=== PATIENT | female | born 1990 | race African-American/Black ===

== ENCOUNTER 2017-02-21 18:45 | Emergency (ER) | payer MEDICAID ==
[~2017-02-21] VITALS: Ht 175.3 cm; Wt 89.4 kg
[2017-02-21 19:50] VITALS: BP 126/86
[2017-02-21] MEDS ORDERED: ACETAMINOPHEN/CODEINE#3 (300/30mg) TAB PO ONE (22:00)
== END 2017-02-21 22:31 | disposition home or self-care (01) ==
LOC: ER 18:45
DX: R51 Headache (principal)
CPT/HCPCS: 70450

== ENCOUNTER 2017-05-29 18:07 | Emergency (ER) | payer MEDICAID ==
[~2017-05-29] VITALS: Ht 175.3 cm; Wt 88.0 kg
[2017-05-29] MEDS ORDERED: ACETAMINOPHEN 325 MG TAB PO ONE (18:30)
[2017-05-29 18:58] LABS: Urine Bilirubin Negative (Negative); Urine Blood TRACE /uL (Negative); Urine Color Yellow (Yellow); Urine Glucose Normal (Normal); Urine Ketone Negative (Negative); Urine Mucus FEW (None Seen); Urine Nitrite Negative (Negative); Urine RBC 8 /hpf (0 - 4); Urine Squamous Epithelial Cell MOD /hpf (<5); Urine pH 6.5 (5.0-8.0)
[2017-05-29 19:34] LABS: Basophils # (auto) 0 uL; Basophils % (auto) 0.2 % (0.0-2.0); CONDITION Y; Eosinophils # (auto) 0 uL; Hematocrit 34.2 % (36.0-46.0); Hemoglobin 11.4 g/dL (12.2-16.2); Lymphocytes # (auto) 1.1 uL; Lymphocytes % (auto) 10.3 % (10.0-50.0); Mean Corpuscular Hemoglobin 31.4 pg (28.0-32.0); Mean Corpuscular Hgb Conc. 33.2 g/dL (32.0-36.0); Mean Corpuscular Volume 94.5 fL (80.0-100.0); Mean Platelet Volume 8.8 fL (7.4-10.4); Monocytes # (auto) 0.9 uL; Monocytes % (auto) 8.3 % (0.0-12.0); Neutrophils # (auto) 8.5 uL; Neutrophils % (auto) 81.2 % (37.0-80.0); Platelet Count (auto) 287 10^3/uL (140-450); Red Cell Distribution Width 13.8 % (11.6-16.0); White Blood Cell 10.5 10^3/uL (4.4-10.8)
[2017-05-30] MEDS ORDERED: KETOROLAC TROMETH 60MG/2ML VIAL IM ONE (07:00)
[2017-05-30] MEDS ORDERED: cefTRIAXone SOD 1,000 MG VL IM ONE (07:00)
[2017-05-30 07:39] VITALS: BP 108/60
== END 2017-05-30 10:11 | disposition home or self-care (01) ==
LOC: ER 18:28
DX: N39.0 Urinary tract infection, site not specified (principal); N12 Tubulo-interstitial nephritis, not specified as acute or chronic
CPT/HCPCS: 36415; 81001; 85025; 96372; 99284; J0696; J1885

== ENCOUNTER 2021-11-12 12:12 | Emergency (ER) | payer MEDICAID ==
[~2021-11-12] VITALS: Ht 175.3 cm; Wt 88.9 kg
[2021-11-12 16:12] VITALS: BP 128/88
== END 2021-11-12 16:47 | disposition home or self-care (01) ==
LOC: ER 12:12
DX: S39.012A Strain of muscle, fascia and tendon of lower back, initial encounter (principal); S16.1XXA Strain of muscle, fascia and tendon at neck level, initial encounter; S70.01XA Contusion of right hip, initial encounter; R51.9 Headache, unspecified; V03.99XA Pedestrian with other conveyance injured in collision with car, pick-up truck or van, unspecified whether traffic or nontraffic accident, initial encounter; Y93.89 Activity, other specified; Y92.488 Other paved roadways as the place of occurrence of the external cause; Y99.8 Other external cause status
CPT/HCPCS: 70450; 72100; 72125; 93971

== ENCOUNTER 2025-09-08 08:29 | Observation (INO) | payer MEDICAID ==
[~2025-09-08] VITALS: Ht 175.3 cm; Wt 90.7 kg
--- NOTE | 2025-09-08 17:20 | DVH ---
OB ULTRASOUND, LIMITED CLINICAL INDICATION: AMA TECHNIQUE: Multiple grayscale ultrasound and M-mode images were obtained of the pelvis for evaluation of intrauterine . COMPARISON: None FINDINGS: A single living fetus is seen in cephalic presentation. Biophysical profile: 07/02 breathin movements: 2 tone: 2 Amniotic Fluid: 2 Placenta: Posterior. Amniotic fluid: Visibly normal. MELISSA 11.2 cm heart rate: 132 beats/min. A complete anatomic survey was not performed on this exam. Cervix is 3.1 cm and closed. IMPRESSION: 1. Biophysical profile: 07/02
[2025-09-08 17:31] LABS: Hematocrit 36.1 % (36.0-46.0); Hemoglobin 11.9 g/dL (12.2-16.2); Mean Corpuscular Hemoglobin 30.2 pg (28.0-32.0); Mean Corpuscular Volume 91.5 fL (80.0-100.0); Nucleated Red Blood Cells % 0.0 %
[2025-09-08 17:45] LABS: Albumin 3.7 g/dL (3.2-4.8); Anion Gap 10 (5-15); BUN/Creatinine Ratio 12.5 (10.0-20.0); Calcium 8.8 mg/dL (8.7-10.4); Carbon Dioxide 25 mmol/L (20-31); Chloride 104 mmol/L (98-107); Glucose 87 mg/dL (74-106); Potassium 3.9 mmol/L (3.5-5.1); Sodium 139 mmol/L (136-145); Total Protein 7.0 g/dL (5.7-8.2); Uric Acid 3.8 mg/dL (3.1-7.8)
[2025-09-08 17:57] LABS: INR 1.01 (0.9-1.15); Partial Thromboplastin Time 30.1 SEC (24.5-34.5); Prothrombin Time 10.7 sec (9.3-11.8)
[2025-09-08 18:08] LABS: Alkaline Phosphatase 264 U/L (46-116); Blood Urea Nitrogen 6 mg/dL (9-23)
[2025-09-08 18:09] LABS: Alanine Aminotransferase < 9 U/L (7-40); Bilirubin, Total 0.2 mg/dL (0.2-1.0)
[2025-09-08 18:10] LABS: Urine Protein, UAD TRACE (Negative)
[2025-09-08] MEDS ORDERED: TERBUTALINE SULFATE 1 MG/ML 1ML VIAL SC PRN (18:15)
[2025-09-08] MEDS ORDERED: hydrALAZINE HCL 20 MG/ML VL IV PRN ×2 (18:15)
[2025-09-08 18:19] LABS: Protein, Urine 30.4 mg/dL (1-14)
[2025-09-08] MEDS: NIFEdipine 10 MG CAP PO STA (18:29)
[2025-09-08] MEDS: hydrALAZINE HCL 20 MG/ML VL IV STA (18:29)
[2025-09-08] MEDS ORDERED: LACTATED RINGER'S 1,000 ML IV SCH (18:30)
[2025-09-08] MEDS: BETAMETHASONE ACET (30mg/5ml) 5ml Vial 6mg/ml IM ONE (20:03)
[2025-09-08] MEDS ORDERED: NIFE10CA52 PO (20:10)
--- NOTE | 2025-09-08 20:23 | DVH ---
LIMITED OB ULTRASOUND > 14 WKS: HISTORY: EFW only, elevated BPs and TECHNIQUE: Multiple real-time grayscale images of the gravid uterus with duplex Doppler color flow an d M-mode spectral analysis. TRANSDUCER: Transabdominal FINDINGS: IUP single live fetus at 33 weeks 6 days based on composite averages of the BPD, head circumference, abdominal circumference and femur length Estimated weight 2386 grams, +/-357.9 g; 67.8%, 5 lb 4 oz +/-13 oz heart rate 145 beats per minute MELISSA 14.81 cm Cervix 3.32 cm Cephalic Presentation Fundal Grade Placenta without previa or abruption. BPD: 8.22 cm = 33 weeks 0 days; range 30 weeks 0 days-36 weeks 1 day HC: 30.38 cm = 33 weeks 5 days; range 30 weeks 6 days- 36 weeks 5 days AC: 30.68 cm = 34 weeks 4 days; range 31 weeks 5 days - 37 weeks 4 days FL: 6.64 cm= 34 weeks 1 day; range 31 weeks 2 days - 37 weeks 1 day CI: 76.68 range 70-86 FL/BPD: 80.78 range 71-87 HC/AC: 0.99 range 0.95 - 1.11 FL/AC: 21.64 range 20.00-24.00 FL/HC: 21.86 range 19.47 -21.76 IMPRESSION: 1. IUP single live fetus at 33 weeks 6 days, AUA corresponding to an SHANNON of 10/21/2025 2. FHR: 145 bpm
--- NOTE | 2025-09-08 20:38 | DVHDS2 ---
Physician Discharge Progress N Final Diagnosis: 34 yo IUP @ 33.3 wk Gestational Hypertension PTL AMA Operations or Procedures: Operations or Procedures S: 34 yo IUP @ 33.3 wk presents to OB triage for scheduled NST/BPP for AMA. Pt found to have elevated BPs, denies SOLANO today, reports having occasional SOLANO in the past. Denies vision changes/epigastric pain/LOF/VB/UCs. +FM. Adequate PNC with OB DVMG with Dr. Cole, complicated by AMA. OB hx: in 2013, uncomplicated. TABx2, SABx1. PMH: denies, denies surgical hx FMH: kidney failure and DM2 (mom) Psych: denies O: VSS except HTN initially, stable prior to D/C (see CPN) NST reactive hydralazine 5mg IVP once given procardia 10mg PO Betamethasone IM given, first dose Laboratory Tests Test 09/08/25 17:09 09/08/25 17:19 Range/Units Urine Color Light-yellow Yellow Urine Clarity Clear Clear Urine pH 6.5 5.0-9.0 Urine Specific [place] 1.019 1.001-1.035 Urine Protein Trace H Negative Urine Ketones Negative Negative Urine Blood Negative Negative /uL Urine Nitrite Negative Negative Urine Bilirubin Negative Negative Urine Urobilinogen Normal Negative mg/dL Urine Leukocyte Esterase Trace Negative /uL Urine RBC 1 0 - 4 /hpf Urine Microscopic WBC 2 0-5 /HPF Urine Squamous Epithelial Cells Few <5 /hpf Urine Bacteria Few H None Seen /hpf Urine Mucus Few None Seen Urine Creatinine 128.03 H 30.0-125.0 mg/dL Urine Protein/Creatinine Ratio 0.24 Urine Glucose Normal Normal mg/dL Urine Total Protein 30.4 H 1-14 mg/dL White Blood Count 6.0 4.4-10.8 10^3/uL Red Blood Count 3.94 L 4.0-5.20 10^6/uL Hemoglobin 11.9 L 12.2-16.2 g/dL Hematocrit 36.1 36.0-46.0 % Mean Corpuscular Volume 91.5 80.0-100.0 fL Mean Corpuscular Hemoglobin 30.2 28.0-32.0 pg Mean Corpuscular Hemoglobin Concent 33.0 32.0-36.0 g/dL Red Cell Distribution Width 13.9 11.8-14.3 % Platelet Count 241 140-450 10^3/uL Mean Platelet Volume 8.7 6.9-10.8 fL Neutrophils (%) (Auto) 60.2 37.0-80.0 % Lymphocytes (%) (Auto) 28.0 10.0-50.0 % Monocytes (%) (Auto) 10.8 0.0-12.0 % Eosinophils (%) (Auto) 0.7 0.0-7.0 % Basophils (%) (Auto) 0.3 0.0-2.0 % Neutrophils # (Auto) 3.6 1.6-8.6 10 ^3/uL Lymphocytes # (Auto) 1.7 0.4-5.4 10 ^3/uL Monocytes # (Auto) 0.6 0-1.3 10 ^3/uL Eosinophils # (Auto) 0 0-0.8 10 ^3/uL Basophils # (Auto) 0 0-0.2 10 ^3/uL Nucleated Red Blood Cells 0.0 % Prothrombin Time 10.7 9.3-11.8 sec Prothrombin Time INR 1.01 0.9-1.15 Activated Partial Thromboplast Time 30.1 24.5-34.5 SEC Sodium Level 139 136-145 mmol/L Potassium Level 3.9 3.5-5.1 mmol/L Chloride Level 104 98-107 mmol/L Carbon Dioxide Level 25 20-31 mmol/L Anion Gap 10 5-15 Blood Urea Nitrogen 6 L 9-23 mg/dL Creatinine 0.48 L 0.550-1.02 mg/dL Glomerular Filtration Rate Calc 127 >90 mL/min BUN/Creatinine Ratio 12.5 10.0-20.0 Serum Glucose 87 74-106 mg/dL Uric Acid 3.8 3.1-7.8 mg/dL Calcium Level 8.8 8.7-10.4 mg/dL Total Bilirubin 0.2 0.2-1.0 mg/dL Aspartate Amino Transferase (AST) 14 13-40 U/L Alanine Aminotransferase (ALT) < 9 7-40 U/L Alkaline Phosphatase 264 H 46-116 U/L Lactate Dehydrogenase 149 120-246 U/L Total Protein 7.0 5.7-8.2 g/dL Albumin 3.7 3.2-4.8 g/dL Vital Signs Date Time Temp Pulse Resp B/P (MAP) Pulse Ox O2 Delivery O2 Flow Rate FiO2 09/08/25 18:29 153/103 A: 34 yo IUP @ 33.3 wk GHTN PTL AMA P: D/c home Rx sent for Procardia 10 mg q [address] Cole take until 36 wks Return to clinic in 24 hours to get second dose of betamethasone S/S of PTL reviewed and to go to nearest hospital if PTL occurs FKC/PreE precautions reviewed. Dr. Cole consulted, agrees with POC. Other Interventions Other Interventions [place] [address] Ph: [phone] DIAGNOSTIC IMAGING Diagnostic Imaging Report : [id number] Signed PATIENT: KEEGAN ARANGO ACCT: [id number] UNIT: [id number] : 1990 LOC: [facility] ROOM / BED: TRIAGE2 / A AGE / SEX: 34 / F ADM STATUS: ADM IN SERVICE 03 ORDERING PHYSICIAN: SHIVANI KNAPP CNM PROCEDURE(s): OBUS - OB ULTRASOUND COMP GTR 14 WKS REASON: EFW only, elevated BPs and ORDER NUMBER(s): [id number], ACCESSION NUMBER(s): [id number] LIMITED OB ULTRASOUND > 14 WKS: HISTORY: EFW only, elevated BPs and TECHNIQUE: Multiple real-time grayscale images of the gravid uterus with duplex Doppler color flow and M-mode spectral analysis. TRANSDUCER: Transabdominal FINDINGS: IUP single live fetus at 33 weeks 6 days based on composite averages of the BPD, head circumference, abdominal circumference and femur length Estimated weight 2386 grams, +/-357.9 g; 67.8%, 5 lb 4 oz +/-13 oz heart rate 145 beats per minute MELISSA 14.81 cm Cervix 3.32 cm Cephalic Presentation Fundal Grade Placenta without previa or abruption. BPD: 8.22 cm = 33 weeks 0 days; range 30 weeks 0 days-36 weeks 1 day HC: 30.38 cm = 33 weeks 5 days; range 30 weeks 6 days- 36 weeks 5 days AC: 30.68 cm = 34 weeks 4 days; range 31 weeks 5 days - 37 weeks 4 days FL: 6.64 cm= 34 weeks 1 day; range 31 weeks 2 days - 37 weeks 1 day CI: 76.68 range 70-86 FL/BPD: 80.78 range 71-87 HC/AC: 0.99 range 0.95 - 1.11 FL/AC: 21.64 range 20.00-24.00 FL/HC: 21.86 range 19.47 -21.76 IMPRESSION: 1. IUP single live fetus at 33 weeks 6 days, AUA corresponding to an SHANNON of 10/21/2025 2. FHR: 145 bpm ATED BY: KEIKO FELIX Jr., DO DICTATED DATE/TIME: 09/08/252020 SIGNED BY: KEIKO FELIX Jr., DO SIGNED DATE/TIME: 09/08/252020 CC: Consultations: Consultations [place] [address] Ph: [phone] DIAGNOSTIC IMAGING Diagnostic Imaging Report : [id number] Signed PATIENT: KEEGAN ARANGO ACCT: [id number] UNIT: [id number] : 1990 LOC: [facility]OM / BED: [facility] / A AGE / SEX: 34 / F ADM STATUS: ADM IN SERVICE 27 ORDERING PHYSICIAN: EMILY COLE DO PROCEDURE(s): BPP - BIOPHYSICAL PROFILE REASON: AMA ORDER NUMBER(s): [id number], ACCESSION NUMBER(s): [id number] OB ULTRASOUND, LIMITED CLINICAL INDICATION: AMA TECHNIQUE: Multiple grayscale ultrasound and M-mode images were obtained of the pelvis for evaluation of intrauterine . COMPARISON: None FINDINGS: A single living fetus is seen in cephalic presentation. Biophysical profile: 07/02 breathin movements: 2 tone: 2 Amniotic Fluid: 2 Placenta: Posterior. Amniotic fluid: Visibly normal. MELISSA 11.2 cm heart rate: 132 beats/min. A complete anatomic survey was not performed on this exam. Cervix is 3.1 cm and closed. IMPRESSION: 1. Biophysical profile: 07/02 ATED BY: EDWIN CARVER MD DICTATED DATE/TIME: 09/08/251716 SIGNED BY: EDWIN CARVER MD SIGNED DATE/TIME: 09/08/251716 CC: Condition on Discharge: Stable Disposition: Home Discharge Instructions: Diet: Regular Activity: Activity comment: pelvic rest Medications: rx sent for Procardia 10 mg q 4 hr PO Follow Up Care: Specialist: f/u in 1 day for second dose of betamethasone Discharge Statement: "Patient was advised to return to the ER or call 911 if any headaches, dizziness, shortness of breath, chest pain, abdominal pain, bleeding, fevers, or worsening of medical condition. Patient was counseled about treatment plan, medications, possible side effects, patientverbalized understanding. All questions were answered to the best of my ability. This discharge took greater then 30 minutes in planning, reviewing documentation, counseling the patient, and discussing with other team members." Visit Coding OBGYN Date of Service: Sep 08, 2025 Billing Provider: SHIVANI KNAPP CNM TUBING MILL OPERATOR Common Visit Codes: [id number] OBS CARE (HIGH) TUBING MILL OPERATOR Procedure Codes: 04594-85- NON-STRESS TEST ALVAREZ BAUTISTA Sep 08, 2025 20:38
[2025-09-09] MEDS ORDERED: PREN1TAB71 PO (21:01)
== END 2025-09-08 20:44 | disposition home or self-care (01) ==
LOC: UNDOADMOB 16:27 → LDRP 16:27 → UNDODISOB 20:44
PROVIDERS: ADMIT Obstetrics & Gynecology; ATTEND Obstetrics & Gynecology
DX: O13.3 Gestational [pregnancy-induced] hypertension without significant proteinuria, third trimester (principal); O26.833 Pregnancy related renal disease, third trimester; N19 Unspecified kidney failure; O60.03 Preterm labor without delivery, third trimester; Z3A.33 33 weeks gestation of pregnancy; Z98.890 Other specified postprocedural states
CPT/HCPCS: 36415; 59025; 76805; 76819; 80053; 81001; 81002; 82570; 83615; 84156; 84550; 85025; 85610; 85730; 94760; 96361; 96372; 96374; G0378; J0360; J0702; 96360

== ENCOUNTER 2025-09-09 19:36 | Observation (INO) | payer MEDICAID ==
[~2025-09-09] VITALS: Ht 175.3 cm; Wt 86.2 kg
[~2025-09-09 19:36] MED LIST: NIFE10CA52 PO
[2025-09-09] MEDS: BETAMETHASONE ACET (30mg/5ml) 5ml Vial 6mg/ml IM ONE (20:21)
[2025-09-09] MEDS: NIFEdipine 10 MG CAP PO ONE (20:22)
[2025-09-09] MEDS ORDERED: PREN1TAB71 PO (21:01)
--- NOTE | 2025-09-09 21:07 | DVHDS2 ---
Physician Discharge Progress N Final Diagnosis: IUP at 33w4d not in labor PIH NST/BPP Operations or Procedures: Operations or Procedures SUBJECTIVE Audrey Mendieta is a 34 yo with IUP at 33w4d presenting for 2nd dose of betamethasone and repeat NST Denies feeling UCs, vaginal bleeding, or leaking fluid. Endorses positive movement. States her blood pressure was normal during the day so she did not take her prescribed procardia EDC: 10/24/25 LMP: 01/21/25 Ob Hx: care with Dr Cole, [facility] x1 Med Hx: denies Surg Hx: denies Review of Systems: Neuro: No complaints Heart: No complaints Lungs: No complaints GI: No complaints : No complaints Skin: No complaints Extremities: No complaints OBJECTIVE VSS FHR: Baseline: 125 Variability: Moderate Accelerations: Present Decelerations: Absent Category: 1 UCs: 2x. Mild palpation. Patient did not feel Neuro: A&O x4. No apparent distress. Affect appropriate Heart: Regular rate and rhythm Lungs: Clear bilaterally GI: Gravid. No tenderness Skin: Dry and intact. No rashes or lesions BPP: 8 ASSESSMENT 34 yo at 33w4d PIH Category 1 Tracing PLAN -Patient given second dose of betamethasone and 10mg procardia -Discussed importance of taking medication for PIH as prescribed. Discussed pre- e precautions. -Discussed labor precautions and kick counts. Answered all patient questions and concerns. Patient verbalizes understanding. Other Interventions Other Interventions BIOPHYSICAL PROFILE HISTORY: AMA, PTL, PIH TECHNIQUE: Multiple transabdominal real-time grayscale sonographic images through the gravid uterus of the fetus with duplex Doppler color flow and M-mode spectral analysis FINDINGS: BIOPHYSICAL PROFILE: breathing score: 2 movement score: 2 tone score: 2 Quantitative MELISSA score: 2 (MELISSA: 12.0 Cm.) Total score: 8/8 The cervix 2.71 cm using trans labial imaging Single live fetus in cephalic presentation. heart rate 135 beats per minute. Posterior Grade 2 placenta without previa or abruption Single live fetus at 33 weeks 4 days Biophysical profile score 8/8 corresponding to an SHANNON of 10/24/2025 IMPRESSION: 1. Biophysical profile score: 8/8 2. FHR: 135 bpm Condition on Discharge: Good Disposition: Home Discharge Instructions: Diet: Regular Activity: No Restrictions, As Tolerated Medications: CONTINUE PROCARDIA Follow Up Care: Discharge Statement: "Patient was advised to return to the ER or call 911 if any headaches, dizziness, shortness of breath, chest pain, abdominal pain, bleeding, fevers, or worsening of medical condition. Patient was counseled about treatment plan, medications, possible side effects, patientverbalized understanding. All questions were answered to the best of my ability. This discharge took greater then 30 minutes in planning, reviewing documentation, counseling the patient, and discussing with other team members." Visit Coding OBGYN Date of Service: Sep 09, 2025 Billing Provider: THOMAS DUNHAM CNM BOOTMAKER Common Visit Codes: [id number] INP/OBS CARE (HIGH) BOOTMAKER Procedure Codes: 08765-26- NON-STRESS TEST THOMAS DUNHAM CNM Sep 09, 2025 21:07
--- NOTE | 2025-09-09 21:50 | DVH ---
BIOPHYSICAL PROFILE HISTORY: AMA, PTL, PIH TECHNIQUE: Multiple transabdominal real-time grayscale sonographic images through the gravid uterus of the fetus with duplex Doppler color flow and M-mode spectral analysis FINDINGS: BIOPHYSICAL PROFILE: breathing score: 2 movement score: 2 tone score: 2 Quantitative MELISSA score: 2 (MELISSA: 12.0 Cm.) Total score: 8/8 The cervix 2.71 cm using trans labial imaging Single live fetus in cephalic presentation. heart rate 135 beats per minute. Posterior Grade 2 placenta without previa or abruption Single live fetus at 33 weeks 4 days Biophysical profile score 8/8 corresponding to an SHANNON of 10/24/2025 IMPRESSION: 1. Biophysical profile score: 8/8 2. FHR: 135 bpm
== END 2025-09-09 21:55 | disposition home or self-care (01) ==
LOC: LDRP 19:36
PROVIDERS: ADMIT Obstetrics & Gynecology; ATTEND Obstetrics & Gynecology
DX: O13.3 Gestational [pregnancy-induced] hypertension without significant proteinuria, third trimester (principal); O09.523 Supervision of elderly multigravida, third trimester; Z3A.33 33 weeks gestation of pregnancy; Z79.899 Other long term (current) drug therapy; Z98.890 Other specified postprocedural states
CPT/HCPCS: 59025; 76819; 81002; 94760; G0378

== ENCOUNTER 2025-09-13 14:58 | Observation (INO) | payer MEDICAID ==
[~2025-09-13] VITALS: Ht 175.3 cm; Wt 95.3 kg
[~2025-09-13 14:58] MED LIST changes: +PREN1TAB71 PO
[2025-09-13 16:13] LABS: Hematocrit 37.7 % (36.0-46.0); Hemoglobin 12.4 g/dL (12.2-16.2); Mean Corpuscular Hemoglobin 30.1 pg (28.0-32.0); Mean Corpuscular Volume 91.6 fL (80.0-100.0); Nucleated Red Blood Cells % 0.1 %
[2025-09-13 16:19] LABS: Urine Protein, UAD TRACE (Negative)
[2025-09-13 16:28] LABS: INR 1.03 (0.9-1.15); Partial Thromboplastin Time 28.6 SEC (24.5-34.5); Prothrombin Time 10.9 sec (9.3-11.8)
[2025-09-13 16:30] LABS: Albumin 4.0 g/dL (3.2-4.8); Anion Gap 10 (5-15); BUN/Creatinine Ratio 15.5 (10.0-20.0); Blood Urea Nitrogen 9 mg/dL (9-23); Calcium 8.9 mg/dL (8.7-10.4); Carbon Dioxide 26 mmol/L (20-31); Chloride 102 mmol/L (98-107); Glucose 86 mg/dL (74-106); Potassium 3.6 mmol/L (3.5-5.1); Sodium 138 mmol/L (136-145); Total Protein 7.6 g/dL (5.7-8.2); Uric Acid 3.3 mg/dL (3.1-7.8)
[2025-09-13 16:31] LABS: Bilirubin, Total 0.3 mg/dL (0.2-1.0)
[2025-09-13 16:32] LABS: Protein, Urine 30.6 mg/dL (1-14)
[2025-09-13 16:34] LABS: Alanine Aminotransferase < 9 U/L (7-40); Alkaline Phosphatase 250 U/L (46-116)
--- NOTE | 2025-09-13 17:06 | DVH ---
BIOPHYSICAL PROFILE HISTORY: AMA and PIH Comparison Study: US BIOPHYSICAL PROFILE on DOS: 09/09/25, US OB ULTRASOUND COMP GTR 14 WKS on DOS: 1 , US BIOPHYSICAL PROFILE on DOS: 09/08/25 TECHNIQUE: Multiple real-time grayscale sonographic images through the gravid uterus of the fetus wi th duplex Doppler color flow and M-mode spectral analysis FINDINGS: BIOPHYSICAL PROFILE: breathing score: 2 movement score: 2 tone score: 2 Quantitative MELISSA score: 2 (MELISSA: 14.5 Cm.) Total score: 8 The cervix is closed and measures 2.6 cm Single live fetus in cephalic presentation. heart rate 145 beats per minute. Posterior placenta without previa or abruption IMPRESSION: Biophysical profile score: 8
--- NOTE | 2025-09-14 06:23 | DVHDS2 ---
Discharge Summary Date of Admission Sep 13, 2025 at 15:08 Date of Discharge: Sep 13, 2025 Admitting Diagnosis Patient is here for 34 weeks for routine monitoring advanced maternal age -induced hypertension blood pressure well controlled NST reassuring Labs/Diagnostic Data: Laboratory Results Test 09/13/25 16:11 09/13/25 16:04 Urine Color Light-yellow (Yellow) Urine Clarity Clear (Clear) Urine pH 6.5 (5.0-9.0) Urine Specific [place] 1.023 (1.001-1.035) Urine Protein Trace (Negative) Urine Ketones Negative (Negative) Urine Blood Negative /uL (Negative) Urine Nitrite Negative (Negative) Urine Bilirubin Negative (Negative) Urine Urobilinogen Normal mg/dL (Negative) Urine Leukocyte Esterase 1+ /uL (Negative) Urine RBC 1 /hpf (0 - 4) Urine Microscopic WBC 5 /HPF (0-5) Urine Squamous Epithelial Cells Few /hpf (<5) Urine Bacteria Few /hpf (None Seen) Urine Mucus Few (None Seen) Urine Creatinine 159.44 mg/dL (30.0-125.0) Urine Protein/Creatinine Ratio 0.19 Urine Glucose Normal mg/dL (Normal) Urine Total Protein 30.6 mg/dL (1-14) White Blood Count 6.5 10^3/uL (4.4-10.8) Red Blood Count 4.12 10^6/uL (4.0-5.20) Hemoglobin 12.4 g/dL (12.2-16.2) Hematocrit 37.7 % (36.0-46.0) Mean Corpuscular Volume 91.6 fL (80.0-100.0) Mean Corpuscular Hemoglobin 30.1 pg (28.0-32.0) Mean Corpuscular Hemoglobin Concent 32.8 g/dL (32.0-36.0) Red Cell Distribution Width 14.1 % (11.8-14.3) Platelet Count 298 10^3/uL (140-450) Mean Platelet Volume 8.5 fL (6.9-10.8) Neutrophils (%) (Auto) 68.9 % (37.0-80.0) Lymphocytes (%) (Auto) 23.4 % (10.0-50.0) Monocytes (%) (Auto) 6.2 % (0.0-12.0) Eosinophils (%) (Auto) 0.5 % (0.0-7.0) Basophils (%) (Auto) 1.0 % (0.0-2.0) Neutrophils # (Auto) 4.5 10 ^3/uL (1.6-8.6) Lymphocytes # (Auto) 1.5 10 ^3/uL (0.4-5.4) Monocytes # (Auto) 0.4 10 ^3/uL (0-1.3) Eosinophils # (Auto) 0 10 ^3/uL (0-0.8) Basophils # (Auto) 0.1 10 ^3/uL (0-0.2) Nucleated Red Blood Cells 0.1 % Prothrombin Time 10.9 sec (9.3-11.8) Prothrombin Time INR 1.03 (0.9-1.15) Activated Partial Thromboplast Time 28.6 SEC (24.5-34.5) Sodium Level 138 mmol/L (136-145) Potassium Level 3.6 mmol/L (3.5-5.1) Chloride Level 102 mmol/L (98-107) Carbon Dioxide Level 26 mmol/L (20-31) Anion Gap 10 (5-15) Blood Urea Nitrogen 9 mg/dL (9-23) Creatinine 0.58 mg/dL (0.550-1.02) Glomerular Filtration Rate Calc 121 mL/min (>90) BUN/Creatinine Ratio 15.5 (10.0-20.0) Serum Glucose 86 mg/dL (74-106) Uric Acid 3.3 mg/dL (3.1-7.8) Calcium Level 8.9 mg/dL (8.7-10.4) Total Bilirubin 0.3 mg/dL (0.2-1.0) Aspartate Amino Transferase (AST) 12 U/L (13-40) Alanine Aminotransferase (ALT) < 9 U/L (7-40) Alkaline Phosphatase 250 U/L (46-116) Total Protein 7.6 g/dL (5.7-8.2) Albumin 4.0 g/dL (3.2-4.8) Other Laboratory Tests 09/13/25 16:04 Brief Hx & Hospital Course: Patient here for routine NST BPP secondary to AMA -induced hypertension Consults/Reason for consult None Operations or Procedures None Condition at Discharge: Good Final Diagnosis/Problems List 34 weeks -induced hypertension advanced maternal age Discharge Disposition: Home Discharge Instruct/Medications Diet: Regular Activity: Light activity Activity comment: Kick counts labor precautions blood pressure precautions Follow Up/Referral: As scheduled routine Medications: Resume home meds Scheduled Nifedipine (Procardia Capsule), 10 MG PO Q4HR Vit W/ Ferrous Fumara (Pnv Plus Multivi), 1 TAB PO DAILY, (Reported) Discharge Statement: "Patient was advised to return to the ER or call 911 if any headaches, dizziness, shortness of breath, chest pain, abdominal pain, bleeding, fevers, or worsening of medical condition. Patient was counseled about treatment plan, medications, possible side effects, patientverbalized understanding. All questions were answered to the best of my ability. This discharge took greater then 30 minutes in planning, reviewing documentation, counseling the patient, and discussing with other team members." ASSESSMENT ASSESSMENT Assessment Visit Coding OBGYN Date of Service: Sep 14, 2025 Billing Provider: BOYD RUTH DO PRICING COORDINATOR Common Visit Codes: 16875-OJM/OBS SAME DATE (LOW), 48100-OJJ/OBS SAME DATE (MOD) PRICING COORDINATOR Procedure Codes: 44479-72- NON-STRESS TEST BOYD RUTH DO Sep 14, 2025 06:23
== END 2025-09-13 16:50 | disposition home or self-care (01) ==
LOC: UNDOADMOB 14:58 → LDRP 14:58
PROVIDERS: ADMIT Obstetrics & Gynecology; ATTEND Obstetrics & Gynecology
DX: O13.3 Gestational [pregnancy-induced] hypertension without significant proteinuria, third trimester (principal); Z3A.34 34 weeks gestation of pregnancy; Z98.890 Other specified postprocedural states
CPT/HCPCS: 36415; 59025; 76819; 80053; 81001; 81002; 82570; 84156; 84550; 85025; 85610; 85730; 94760; G0378

== ENCOUNTER 2025-09-16 07:13 | Observation (INO) | payer MEDICAID ==
[~2025-09-16] VITALS: Ht 175.3 cm; Wt 79.4 kg
--- NOTE | 2025-09-16 16:36 | DVH ---
BIOPHYSICAL PROFILE HISTORY: PIH, AMA TECHNIQUE: Multiple transabdominal real-time grayscale sonographic images through the gravid uterus of the fetus with duplex Doppler color flow and M-mode spectral analysis ( 24 images) received FINDINGS: BIOPHYSICAL PROFILE: breathing score: 2 movement score: 2 tone score: 2 Quantitative MELISSA score: 2 (MELISSA: 13.0 Cm MVP: 5.2 cm.) Total score: 8/8 The cervix 2.6 cm and appears closed Single live fetus in cephalic presentation. heart rate 147 beats per minute. Fundal Grade 1 placenta without previa or abruption Single live fetus at 34 weeks 4 days Biophysical profile score 8/8 corresponding to an SHANNON of 10/24/2025. IMPRESSION: 1. Biophysical profile score: 8/8 2. FHR: 147 beats per minute 3. Cervix measures 2.6 cm and appears closed
[2025-09-16] MEDS: NIFEdipine 10 MG CAP PO ONE (16:49)
[2025-09-16 16:59] LABS: Hematocrit 36.3 % (36.0-46.0); Hemoglobin 12.2 g/dL (12.2-16.2); Mean Corpuscular Hemoglobin 30.8 pg (28.0-32.0); Mean Corpuscular Volume 91.4 fL (80.0-100.0); Nucleated Red Blood Cells % 0.0 %
[2025-09-16 17:12] LABS: Albumin 3.8 g/dL (3.2-4.8); Anion Gap 8 (5-15); BUN/Creatinine Ratio 11.1 (10.0-20.0); Calcium 9.1 mg/dL (8.7-10.4); Carbon Dioxide 27 mmol/L (20-31); Chloride 102 mmol/L (98-107); Potassium 4.0 mmol/L (3.5-5.1); Sodium 137 mmol/L (136-145); Total Protein 7.5 g/dL (5.7-8.2); Uric Acid 3.5 mg/dL (3.1-7.8)
[2025-09-16 17:13] LABS: Alanine Aminotransferase < 9 U/L (7-40); Alkaline Phosphatase 293 U/L (46-116); Bilirubin, Total 0.2 mg/dL (0.2-1.0); Blood Urea Nitrogen 6 mg/dL (9-23); Glucose 69 mg/dL (74-106)
[2025-09-16 17:17] LABS: Urine Protein, UAD Negative (Negative)
[2025-09-16 17:19] LABS: Protein, Urine 15.7 mg/dL (1-14)
[2025-09-16 17:22] LABS: Amphetamine Screen, Urine Neg (NEGATIVE); Barbiturate Scree,Urine Neg (NEGATIVE); Benzodiazephine Screen, Urine Neg (NEGATIVE); Cocaine Screen, Urine Neg (NEGATIVE); INR 1.0 (0.9-1.15); Opiate Scree,Urine Pos (NEGATIVE); Partial Thromboplastin Time 29.1 SEC (24.5-34.5); Prothrombin Time 10.6 sec (9.3-11.8)
[2025-09-16 17:23] LABS: Cannabinoid Screen, Urine Neg (NEGATIVE); Phencyclidine Screen, Urine Neg (NEGATIVE)
--- NOTE | 2025-09-16 19:16 | DVH ---
LIMITED OB ULTRASOUND > 14 WKS: HISTORY: EFW ONLY BPP DONE PRIOR TECHNIQUE: Multiple real-time grayscale images of the gravid uterus with duplex Doppler color flow an d M-mode spectral analysis. TRANSDUCER: Transabdominal FINDINGS: IUP single live fetus at 34 weeks 4 days based on composite averages of the BPD, head circumference, abdominal circumference and femur length Estimated weight 2570 grams, 5 lb 11 oz; 58.5% heart rate 132 beats per minute MELISSA 13.0 cm; MVP: 5.2 cm Cervix 2.6 cm Cephalic Presentation Fundal Grade 2 Placenta without previa or abruption. IMPRESSION: 1. IUP single live fetus at 34w,4d AUA corresponding to an SHANNON of 10/19/2025. 2. FHR: 132 bpm
--- NOTE | 2025-09-17 08:32 | DVHDS2 ---
Physician Discharge Progress N Final Diagnosis: pih,ama,ptl 34 wks Operations or Procedures: Operations or Procedures nst reactive reviwed,sono Condition on Discharge: Good Disposition: Home Discharge Instructions: Diet: Regular Activity: No Restrictions, As Tolerated Follow Up/Referral: as scheduled. Medications: na Follow Up Care: Specialist: 2d Discharge Statement: "Patient was advised to return to the ER or call 911 if any headaches, dizziness, shortness of breath, chest pain, abdominal pain, bleeding, fevers, or worsening of medical condition. Patient was counseled about treatment plan, medications, possible side effects, patientverbalized understanding. All questions were answered to the best of my ability. This discharge took greater then 30 minutes in planning, reviewing documentation, counseling the patient, and discussing with other team members." Visit Coding OBGYN Date of Service: Sep 16, 2025 Billing Provider: GILBERTO POSEY DO VOICE INTERCEPT TECHNICIAN Common Visit Codes: 63117-EXQGRSV INP/OBS CARE (HIGH) VOICE INTERCEPT TECHNICIAN Procedure Codes: 29787-63- NON-STRESS TEST GILBERTO POSEY DO Sep 17, 2025 08:32
== END 2025-09-16 17:46 | disposition home or self-care (01) ==
LOC: LDRP 15:00 → UNDOADMOB 15:00 → LDRP 15:32
PROVIDERS: ADMIT Obstetrics & Gynecology; ATTEND Obstetrics & Gynecology
DX: O13.3 Gestational [pregnancy-induced] hypertension without significant proteinuria, third trimester (principal); O60.03 Preterm labor without delivery, third trimester; Z3A.34 34 weeks gestation of pregnancy; Z79.899 Other long term (current) drug therapy; Z98.890 Other specified postprocedural states
CPT/HCPCS: 36415; 59025; 76805; 76819; 80053; 80307; 81001; 81002; 82570; 84156; 84550; 85025; 85610; 85730; 94760; G0378

== ENCOUNTER 2025-09-20 15:04 | Observation (INO) | payer MEDICAID ==
--- NOTE | 2025-09-20 16:19 | DVH ---
BIOPHYSICAL PROFILE HISTORY: PIH/PTL TECHNIQUE: Multiple transabdominal and transvaginal real-time grayscale sonographic images through t he gravid uterus of the fetus with duplex Doppler color flow and M-mode spectral analysis FINDINGS: BIOPHYSICAL PROFILE: breathing score: 2 movement score: 2 tone score: 2 Quantitative MELISSA score: 2 (MELISSA: 11.9 Cm, MVP: 6.5 cm.) Total score: 9/8 The cervix 2.2 cm Single live fetus in cephalic presentation. heart rate 130 bpm beats per minute. Posterior Grade 1 placenta without previa or abruption Single live fetus at 35 weeks 1 day Biophysical profile score 8/8 corresponding to an SHANNON of 10/24/2025 IMPRESSION: 1. Biophysical profile score: 8/8 2. FHR: 130 bpm
--- NOTE | 2025-09-20 19:44 | DVHDS2 ---
Discharge Summary Date of Admission Sep 20, 2025 at 15:04 Date of Discharge: Sep 20, 2025 Admitting Diagnosis Thirty-five week -induced hypertension advanced maternal age labor here for routine monitoring patient feels terrific NST BPP all reassuring no evidence of labor. Wounds: None Brief Hx & Hospital Course: NST BPP performed reassuring Consults/Reason for consult labor advanced maternal age PH Operations or Procedures BPP NST Condition at Discharge: Good Final Diagnosis/Problems List 35 week PH AMA labor Discharge Disposition: Home Discharge Instruct/Medications Diet: Regular Activity: Light activity (Pelvic rest kick counts PH and labor precautions) Activity comment: Pelvic rest PH labor precautions kick counts Follow Up/Referral: As scheduled for routine monitoring. Scheduled Nifedipine (Procardia Capsule), 10 MG PO Q4HR Vit W/ Ferrous Fumara (Pnv Plus Multivi), 1 TAB PO DAILY, (Reported) Discharge Statement: "Patient was advised to return to the ER or call 911 if any headaches, dizziness, shortness of breath, chest pain, abdominal pain, bleeding, fevers, or worsening of medical condition. Patient was counseled about treatment plan, medications, possible side effects, patientverbalized understanding. All questions were answered to the best of my ability. This discharge took greater then 30 minutes in planning, reviewing documentation, counseling the patient, and discussing with other team members." ASSESSMENT ASSESSMENT Assessment Visit Coding OBGYN Date of Service: Sep 20, 2025 Billing Provider: BOYD RUTH DO BAG SHOP WORKER Common Visit Codes: 90254-OVJ/OBS SAME DATE (LOW), 91860-UVE/OBS SAME DATE (MOD), 48487-BVH/OBS SAME DATE (HIGH) BAG SHOP WORKER Procedure Codes: 92803-66- NON-STRESS TEST BOYD RUTH DO Sep 20, 2025 19:44
== END 2025-09-20 16:51 | disposition home or self-care (01) ==
LOC: UNDOADMOB 15:04 → LDRP 15:04 → UNDODISOB 16:51
PROVIDERS: ADMIT Obstetrics & Gynecology; ATTEND Obstetrics & Gynecology
DX: O60.03 Preterm labor without delivery, third trimester (principal); O13.3 Gestational [pregnancy-induced] hypertension without significant proteinuria, third trimester; Z3A.35 35 weeks gestation of pregnancy; Z98.890 Other specified postprocedural states
CPT/HCPCS: 59025; 76817; 76819; 81002; 94760; G0378

== ENCOUNTER 2025-10-14 06:50 | Inpatient (IN) | payer MEDICAID ==
[~2025-10-14] VITALS: Ht 175.3 cm; Wt 97.5 kg
[2025-10-14] MEDS ORDERED: LORazepam 2MG/ML-1ML VIAL IV PRN (07:15)
[2025-10-14] MEDS ORDERED: BUTORPHANOL TARTRATE 2 MG/1 ML VIAL IV PRN ×2 (07:15)
[2025-10-14] MEDS ORDERED: LIDOCAINE 2%HCL (LOCAL ANESTH.) INJ 20ML MDV IJ PRN (07:15)
[2025-10-14] MEDS ORDERED: MAGNESIUM SULFATE 100 ML IV ONE (07:15)
[2025-10-14] MEDS ORDERED: MAGNESIUM SULFATE 40MG/ML 1,000 ML IV SCH (07:15)
[2025-10-14] MEDS: hydrALAZINE HCL 20 MG/ML VL IV PRN (07:27)
[2025-10-14] MEDS ORDERED: NALOXONE HCL 0.4 MG/ML VIAL IV ONE (07:30)
[2025-10-14] MEDS ORDERED: LIDOCAINE HCL 2 %PF INJ 10ML AMP IJ ONE (07:30)
[2025-10-14] MEDS: DERMOPLAST 60ML BOTTLE TOP PRN (07:38)
[2025-10-14] MEDS: PHISODERM TOP SOLN 240ML BTL TOP PRN (07:39)
[2025-10-14] MEDS: WITCH HAZEL-GLYCERIN PAD TOP PRN (07:39)
[2025-10-14 08:06] LABS: Hematocrit 42.7 % (36.0-46.0); Hemoglobin 14.3 g/dL (12.2-16.2); Mean Corpuscular Hemoglobin 30.6 pg (28.0-32.0); Mean Corpuscular Volume 91.6 fL (80.0-100.0); Nucleated Red Blood Cells % 0.0 %
[2025-10-14] MEDS ORDERED: TERBUTALINE SULFATE 1 MG/ML 1ML VIAL SC PRN (08:15)
[2025-10-14 08:21] LABS: INR 0.95 (0.9-1.15); Partial Thromboplastin Time 28.1 SEC (24.5-34.5); Prothrombin Time 10.1 sec (9.3-11.8)
[2025-10-14] MEDS ORDERED: fentaNYL CITRATE 100 MCG/2 ML VL ONE (08:50)
[2025-10-14 09:18] LABS: Alanine Aminotransferase 11 U/L (7-40); Albumin 4.4 g/dL (3.2-4.8); Anion Gap 10 (5-15); BUN/Creatinine Ratio 11.1 (10.0-20.0); Bilirubin, Total 0.4 mg/dL (0.2-1.0); Calcium 9.5 mg/dL (8.7-10.4); Carbon Dioxide 24 mmol/L (20-31); Chloride 102 mmol/L (98-107); Glucose 80 mg/dL (74-106); Potassium 4.0 mmol/L (3.5-5.1); Sodium 136 mmol/L (136-145); Uric Acid 4.6 mg/dL (3.1-7.8)
[2025-10-14 09:19] LABS: Alkaline Phosphatase 396 U/L (46-116); Blood Urea Nitrogen 6 mg/dL (9-23); Total Protein 8.6 g/dL (5.7-8.2)
--- NOTE | 2025-10-14 09:30 | EPIDURAL ---
Anesthesia Procedural Note - Epidural Informed consent obtained?: Yes Medication Administered: Fentanyl 100 mcg Sterile prept drape: Yes Spinal level of insertion: L3-L4 Test dose of lidocaine & Epine: Negative Infusion started: Yes Start time: 08:48 End time: 14:44 Procedure description Procedure description: 35 y/o 38 weeks AOG, admitted for active labor, desires PCEA for labor and delivery. Chart reviewed, H & P done, informed consent obtained, all questions answered and she wishes to proceed with PCEA> IVF bolus given. Positioned sitting. Area prepped and draped. Lidocaine 1% for skin infiltration. With Touhy G18 and loss of resistance technique, epidural space identified. Catheter threaded and secured. Test dose negative x 2. Ropivacaine infusion started. Pain score improved from 8/10 to 2/10. Patient comfortable, vital signs stable throughout. Delivered by a live baby boy with APGARs 8 & 8 at 1 & 5 minutes respectively. Epidural catheter pulled with tip intact. No redness, swelling, or oozing around the epidural area. Ms. Mendieta is back to baseline, able to ambulate and bell with her son. Total epidural time: 0848 - 1444 Total face to face time: 0848 - 0930. FATMATA WASSERMAN MD Oct 14, 2025 09:30
--- NOTE | 2025-10-14 09:49 | DVHHP ---
ADMIT DATE: 10/14/2025 CHIEF COMPLAINT: Labor. HISTORY OF PRESENT ILLNESS: The patient is a 35-year-old 2, para 1 with EDC 10/21/2025. Estimated gestational age of 38 weeks. Admitted in active labor. ____ 3 cm, -3. Blood pressure was high, which then became normal. Preeclampsia lab was ordered. The patient has advanced maternal age and no rupture of membranes. PAST MEDICAL HISTORY: None. PAST SURGICAL HISTORY: None. SOCIAL HISTORY: None. FAMILY HISTORY: None. [employer] HISTORY: One normal vaginal delivery. REVIEW OF SYSTEMS: Consistent with HPI. PHYSICAL EXAMINATION: VITAL SIGNS: Stable, afebrile. HEENT: Within normal limits. CARDIOVASCULAR: Regular rate and rhythm. LUNGS: Clear to auscultation. BREASTS: Symmetrical. No masses. ABDOMEN: Gravid. Positive heart. PELVIC: 3 cm, 50%, -3. EXTREMITIES: No clubbing, cyanosis, or edema. IMPRESSION: * Intrauterine at 38 plus weeks in labor. * AMA. PLAN: Obtain ____ labs. Obtain epidural. May use Pitocin and MAC if necessary. DO SARA Alba/BRIANA/UMBERTO TID: [id number] RECEIPT: [id number]
[2025-10-14 11:18] LABS: Urine Protein, UAD Negative (Negative)
[2025-10-14] MEDS ORDERED: ONDANSETRON ODT 4 MG TAB PO PRN (12:15)
[2025-10-14 12:22] LABS: Opiate Scree,Urine Pos (NEGATIVE)
[2025-10-14 12:23] LABS: Protein, Urine 25.6 mg/dL (1-14)
[2025-10-14] MEDS: LACTATED RINGER'S 1,000 ML IV SCH (12:24)
[2025-10-14 12:31] LABS: Amphetamine Screen, Urine Neg (NEGATIVE); Barbiturate Scree,Urine Neg (NEGATIVE); Benzodiazephine Screen, Urine Neg (NEGATIVE); Cannabinoid Screen, Urine Neg (NEGATIVE); Cocaine Screen, Urine Neg (NEGATIVE); Phencyclidine Screen, Urine Neg (NEGATIVE)
[2025-10-14] MEDS: LACT. RINGERS/OXYTOCIN 20UNITS 1,000 ML IV SCH (12:36)
[2025-10-14] MEDS: LACT. RINGERS/OXYTOCIN 20UNITS 500 ML IV ONE ×2 (12:37→12:38)
[2025-10-14] MEDS: fentaNYL CITRATE 100 MCG/2 ML VL IV ONE (12:39)
[2025-10-14] MEDS: ROPIVACAINE HCL 100 ML ONE (12:41)
[2025-10-14] MEDS: IBUPROFEN 600 MG TAB PO PRN (13:25)
[2025-10-14] MEDS: ceFAZolin 1GM/50ML 50 ML IV SCH (13:26)
--- NOTE | 2025-10-14 14:30 | LDN2 ---
Labor and Delivery Note Date 10/14/25 Age 35 2 Para 2 EDC 11 EGA 38WKS Diagnosis LABOR,AMA,DRUG POS Vaginal Delivery: VTX Vacuum Assisted: Yes Placenta: Spontaneous Sex: Male Apgars 8-8 Nuchal Cord Transected: No Amniotic Fluid: Clear Anesthesia EPIDURAL Episiotomy: Yes Extension: Yes (MIDLINE EPIS WITH 2ND DGE PERINEAL LAC) Repaired with 2-0 CHROMIC EBL 300ML Labs Blood Bank 10/14/25 07:31: Blood Type O POSITIVE Complications NONE Conditions STABLE Comments/Significant Med Jay SPEC EXAM NO CXAL LAC,PT REQUIRED EPIS AND VACCUM DEL . PRIOR TO DOING SO PERMISSION WAS ASKED DUE TO POOR PUSHING EFFORT AND DECL PT REQUIRED THAT.PT AGREED ,VACCUM WAS APPLIED 2 TIMES AND BABY DEL SUCCESSFULLY Visit Coding OBGYN Date of Service: Oct 14, 2025 Billing Provider: GILBERTO POSEY DO SEISMOLOGY TEACHER Common Visit Codes: [id number] OBS CARE (HIGH) SEISMOLOGY TEACHER Procedure Codes: 80339-DPB DELIVERY ONLY GILBERTO POSEY DO Oct 14, 2025 14:29
[2025-10-14 15:01] VITALS: BP 150/75; PULSE 88; RESP 16; TEMP 97.9; O2SAT 98
[2025-10-14 19:00] VITALS: BP 151/98; PULSE 86; RESP 16; TEMP 98.9; O2SAT 98
[2025-10-14] MEDS: DOCUSATE SOD 100 MG CAP PO SCH (19:39)
[2025-10-14] MEDS: LABETALOL HCL 200 MG TAB PO SCH (20:36)
[2025-10-14 23:00] VITALS: BP 131/80; PULSE 71; RESP 16; TEMP 98.7; O2SAT 96
[2025-10-15 02:36] VITALS: BP 140/89; PULSE 78; RESP 16; TEMP 98.5; O2SAT 98
[2025-10-15 03:00] VITALS: BP 140/89; PULSE 78; RESP 17; TEMP 98.5; O2SAT 98
--- NOTE | 2025-10-15 04:14 | DVHPN2 ---
Progress Note Date Seen: Oct 15, 2025 Subjective Cindrica is resting R lateral in bed. Baby is with RN getting bath and hearing screen done. Patient states she is feeling a lot of pain at her perineal incision site. She does not remember when she was last given pain medication SUBJECTIVE -Lochia minimal -Tolerating regular diet well. -Pain relieved with oral medication PRN. -Ambulating and voiding well w/o feeling lightheaded or dizzy. -Passing flatus but no BM yet -Bottle feeding vital signs Vital Sign Date Time Temp Pulse Resp B/P (MAP) Pulse Ox O2 Delivery O2 Flow Rate FiO2 10/14/25 23:00 98.7 71 16 131/80 (97) 96 98.7 10/14/25 19:00 Room Air Total Intake and Output 10/14/25 10/14/25 10/15/25 15:00 23:00 07:00 Output Total 100 ml 1100 ml Balance -100 ml -1100 ml medications Current Medications Medications Dose Ordered Sig/Nathan Route Start Time Stop Time Status Last Admin Dose Admin Lactated Ringer's 1,000 ml @ 125 mls/hr Q8H IV 10/14/25 07:15 10/14/25 12:24 125 MLS/HR Witch Jovanna 1 pad PRN PRN TOP 10/14/25 07:15 10/14/25 07:39 1 PAD Sodium Lauryl Sulfate 240 ml PRN PRN TOP 10/14/25 07:15 10/14/25 07:39 240 ML Benzocaine 1 applic PRN PRN TOP 10/14/25 07:15 10/14/25 07:38 1 APPLIC Butorphanol Tartrate 1 mg Q4HPRN PRN IV 10/14/25 07:15 Cancel Butorphanol Tartrate 2 mg Q4HPRN PRN IV 10/14/25 07:15 Cancel Lidocaine HCl 20 ml ONCE PRN IJ 10/14/25 07:15 Cancel Hydralazine HCl 5 mg Q20MP PRN IV 10/14/25 07:15 10/14/25 07:52 5 MG Magnesium Sulfate 1,000 ml @ 50 mls/hr Q20H IV 10/14/25 07:15 Cancel Lorazepam 4 mg ONCE PRN IV 10/14/25 07:15 Cancel Oxytocin 1,000 ml @ 6 ml/hr Q24H IV 10/14/25 08:15 10/14/25 12:36 6 ML/HR Terbutaline Sulfate 0.25 mg ONCE PRN SC 10/14/25 08:15 Cancel Ibuprofen 600 mg Q6HP PRN PO 10/14/25 12:15 10/15/25 03:51 600 MG Acetaminophen 650 mg Q4HP PRN PO 10/14/25 12:15 Ondansetron HCl 4 mg Q4HPRN PRN PO 10/14/25 12:15 Docusate Sodium 200 mg HS PO 10/14/25 22:00 10/14/25 19:39 200 MG Cefazolin Sodium 50 ml @ 100 mls/hr Q8H IV 10/14/25 12:15 10/14/25 21:35 100 MLS/HR Misoprostol 50 mcg Q4HPRN PRN PO 10/14/25 18:00 UNV Labetalol HCl 300 mg Q12H PO 10/14/25 20:00 10/14/25 20:36 300 MG laboratory and microbiology Laboratory Tests 10/14/25 07:31 Test 10/14/25 07:31 Range/Units Serum Glucose 80 74-106 mg/dL Objective OBJECTIVE -A&O x4. No apparent distress. Affect appropriate -Afebrile, VSS. Last severe BP at 1911 on 10/14/25 -Chest: heart and lung sounds normal. -Breasts: Nipples intact w/o cracks or soreness -Abdomen: normal BS, soft, non-tender, no rebound or guarding, fundus firm @ U- 1, lochia minimal -Perineum: no edema, or erythema, Incision site with sutures intact, edges in good approximation. -Extremities: no edema or tenderness Problems(with codes): (1) Vacuum-assisted vaginal delivery (2) Episiotomy pain (3) Second degree perineal laceration (4) Gestational hypertension Assessment/Plan ASSESSMENT -35 yo now ppd #1 s/p VAVD doing well. -Blood Type: O+ -Bottle feeding -Rubella Immune -Severe range BPs PLAN -Continue pain management with oral medications as previously ordered. RN to bring dose now for perineal pain. Patient also encouraged to use dermoplast spray and replace witch jovanna pads frequently -Increase fluid intake and fiber in diet to promote regular bowel movements, Laxative PRN -Continue routine care. BPs and labetalol dosing being managed by Dr Cole. to evaluate later to determine readiness for discharge Plan discussed with: Patient Visit Coding OBGYN Date of Service: Oct 15, 2025 Billing Provider: THOMAS DUNHAM CNM FILTER CHANGER Common Visit Codes: [id number] INP/OBS CARE(MOD) THOMAS DUNHAM CNM Oct 15, 2025 04:14
[2025-10-15 07:07] VITALS: BP 136/83; PULSE 70; RESP 17; TEMP 98.6; O2SAT 97
[2025-10-15] MEDS: ACETAMINOPHEN 325 MG TAB PO PRN (07:49)
[2025-10-15] MEDS ORDERED: LABE300T5 PO (09:12)
[2025-10-15 10:53] VITALS: BP 132/78; PULSE 74; RESP 17; TEMP 98.2; O2SAT 99
--- NOTE | 2025-10-16 14:07 | DVHDS2 ---
Obstetrics Discharge Summary Obstetrics Discharge Summary Date of Admission: Oct 14, 2025 Date of Discharge: Oct 16, 2025 Reason For Admission: Onset of Labor Procedures: NST Intrapartum Procedures: Spontaneous vaginal deliv, Vacuum Extraction, Episiotomy Operative Complicat: Laceration (Perineal) Discharge Diagnosis: Delivery Discharge Information: Activity (Other), Diet (Routine), Medications (Name:), Instructions (Routine), Discharge to (Home), Discarge date (10-16) Visit Coding OBGYN Date of Service: Oct 15, 2025 Billing Provider: GILBERTO POSEY DO YARD WAREHOUSE WORKER Common Visit Codes: [id number] OBS CARE (HIGH), 28975-NMO/OBS DISCH DAY >30MIN [employer]ARD WAREHOUSE WORKER Procedure Codes: 54519-GGB DELIVERY ONLY GILBERTO POSEY DO Oct 16, 2025 14:07
== END 2025-10-15 15:33 | disposition home or self-care (01) | DRG 560 ==
LOC: LDRP 06:50 → OBSVTOIN 07:06 → LDRP 18:14
PROVIDERS: ADMIT Obstetrics & Gynecology; ATTEND Obstetrics & Gynecology
PROC: 10D07Z6 Extraction of Products of Conception, Vacuum, Via Natural or Artificial Opening (ICD-10-PCS; principal; 2025-10-14)
PROC: 0KQM0ZZ Repair Perineum Muscle, Open Approach (ICD-10-PCS; 2025-10-14)
PROC: 0W8NXZZ Division of Female Perineum, External Approach (ICD-10-PCS; 2025-10-14)
PROC: 3E0R3BZ Introduction of Anesthetic Agent into Spinal Canal, Percutaneous Approach (ICD-10-PCS; 2025-10-14)
PROC: 00HU33Z Insertion of Infusion Device into Spinal Canal, Percutaneous Approach (ICD-10-PCS; 2025-10-14)
DX: O70.1 Second degree perineal laceration during delivery (principal); Z37.0 Single live birth; O60.14X0 Preterm labor third trimester with preterm delivery third trimester, not applicable or unspecified; Z3A.38 38 weeks gestation of pregnancy; O13.4 Gestational [pregnancy-induced] hypertension without significant proteinuria, complicating childbirth
CPT/HCPCS: 36415; 59025; 59409; 62282; 80053; 80307; 81001; 81002; 82570; 83735; 84156; 84550; 85025; 85610; 85730; 86780; 86803; 86850; 86900; 86901; 94760; 96360; 96361; 96374; 96375; G0378; J2590